=== PATIENT | female | born 1975 | race Caucasian/White ===

== ENCOUNTER 2023-12-04 12:27 | Day surgery (SDC) | payer BC, SELFPAY ==
[2023-11-30 17:25] VITALS: BMI 26.1
[2023-12-04 13:30] VITALS: BP 119/74; PULSE 65; RESP 18; TEMP 36.8; O2SAT 100
--- NOTE | 2023-12-04 13:34 | EXP.ANES.CKL ---
[facility] Disclaimer: The information contained in this section may have been updated after the patient was seen, as this information can be updated by other users. Medical History Family history of premature ventricular contractions History of hypothyroidism Surgical History History of knee surgery Family History Other No significant family history Social History (Updated 12/04/23 @ 13:39 by Carmina Mcleod RN) Smoking Status: Never smoker alcohol intake: never substance use type: denies use current occupational status: other Travel in the last 8 weeks: None caffeine: No [facility] Anesthesia Checklist Patient Identification Patient Identification: Arm Band and Verbal (Name & ) Structural Data Admitted From: Home Planned Operative Procedure/s: Colonoscopy Consent for Planned Operative Procedure(s) Verified: Yes Verified Documents: Surgical Consent and History and Physical NPO Status Verified Time NPO: 00:00 Chart Verification Results Verified: HCG Additional verifications Anesthesia Reactions: No Airway Assessment Mallampati Score:: Class I C-Spine Mobility Assessed: Yes TMJ Mobility Assessed: Yes Dentition: Good Dentition Neurological Assessment Level of Consciousness: Awake Hx Seizures: No Numbness or tingling in extremities: No Anesthesia Plan Anesthesia Risk discussed: Yes Anesthesia Plan: Verified ASA Class: II Anesthesia Type: MAC
[2023-12-04 13:39] LABS: Urine Pregnancy, HCG Qual. Negative (Negative)
[2023-12-04] MEDS: LACTATED RINGERS 1000ML 1,000 ML 25 ML IV (13:41)
--- NOTE | 2023-12-04 14:34 | P.HP_ITS ---
History of Present Illness *Admission Date: 12/04/23 *Reason for visit:: Screening *History of present illness: Mrs. Rock is a 48-year-old female who is here for screening colonoscopy. The examination is deemed medically necessary for screening. The patient has been seen, interviewed and examined prior to the procedure by both myself and the anesthesia provider. [facility] Disclaimer: The information contained in this section may have been updated after the patient was seen, as this information can be updated by other users. Medical History Family history of premature ventricular contractions History of hypothyroidism Surgical History History of knee surgery Family History Other No significant family history Social History (Updated 12/04/23 @ 13:43 by Lara Laura CRNA) Smoking Status: Never smoker alcohol intake: never substance use type: denies use current occupational status: other Travel in the last 8 weeks: None caffeine: No Review of Systems Review of Systems Review of systems (narrative): Negative *Cardiovascular Comments: Negative *Gastrointestinal Comments: Negative *Genitourinary Comments: Negative *Musculoskeletal Comments: Negative *Neurologic Comments: Negative Meds Home Medications and Allergies Home Medications ?Medication ?Instructions ?Recorded ?Confirmed ?Type levothyroxine 125 mcg tablet 125 mcg PO DAILY 11/30/23 12/04/23 History (Synthroid) metoprolol succinate 25 mg 25 mg PO DAILY 11/30/23 12/04/23 History tablet,extended release 24 hr New Prescriptions to Start Prescriptions: Allergies Allergy/AdvReac Type Severity Reaction Status Date / Time No Known Drug Allergies Allergy Other Verified 12/04/23 13:39 Exam Data for Last 24 hours Vital signs and Labs for Last 24 Hours: Temp Pulse Resp BP Pulse Ox O2 Del Method 98.2 F 65 18 119/74 100 Room Air 12/04/23 13:30 12/04/23 13:30 12/04/23 13:30 12/04/23 13:30 12/04/23 13:30 12/04/23 13:30 Laboratory Results - last 24 hr 12/04/23 13:11: Urine HCG, Qual Negative *Routine HEENT Exam Head: Present normocephalic Eye: Present EOMI and PERRL ENT: Present mucous membranes moist *Routine Neck Exam Neck: Present supple *Routine Respiratory Exam Respiratory: Present CTA bilaterally *Routine Cardiovascular Exam Cardiovascular: Present RRR *Routine Abdominal Exam Abdominal: Present soft and normoactive bowel sounds; Absent tenderness *Routine Rectal Exam Rectal:: deferred *Routine Genitalia Exam Genitalia:: deferred *Routine Extremities Exam Extremities: Absent cyanosis, clubbing or edema *Routine Skin Exam Skin: Present warm; Absent rash *Routine Neurological Exam Neurological: Present alert and oriented X3 Assessment and Plan *Assessment and plan (1) Screening for colon cancer: Status: Acute Category: Medical Code(s): Z12.11 - Encounter for screening for malignant neoplasm of colon Plan A/P: 1. Screening for colon cancer is the preprocedural diagnosis. The patient will be anesthetized/sedated using MAC sedation. The patient has been seen and examined. Cardiac and lung assessment prior to the examination is stable. Proceed with planned colonoscopy
[2023-12-04 14:40] VITALS: O2SAT 100
--- NOTE | 2023-12-04 14:43 | P.PCN_ITS ---
[facility] Procedure Note Date: 12/04/23 Time: 15:02 Procedure Note:: Colonoscopy Procedure Report: Colonoscopy with cold snare polypectomy Endoscopist: Chau Brown II, MD Referring physician: VJ Martinez Date of Procedure: December 04, 2023 Equipment: Olympus 190 variable stiffness pediatric colonoscope Sedation: MAC sedation Indication: Mrs. Rock is a 48-year-old female who is here for initial screening colonoscopy. She reports no abdominal pain, weight loss, change in her bowel habits or rectal bleeding. She reports no family history of colon cancer. Procedure: Prior to the procedure, a history and physical exam was performed, and patient's medications and allergies were reviewed. The risks, benefits and alternatives of the sedation and procedure were discussed with the patient. All questions were answered and informed consent was obtained. The patient was brought to the procedure room. Patient identification and proposed procedure were verified by the physician and the nurse. The patient was placed in a left lateral decubitus position and the scope was passed under direct vision. Throughout the procedure, the patient's blood pressure, pulse, and oxygen saturations were monitored continuously. The colonoscopy was accomplished without difficulty. The patient tolerated the procedure well. Findings: On digital rectal examination there was normal rectal tone. There were no external hemorrhoids. The colonoscope was introduced through the anal canal to the rectum and advanced to the cecum. The ileocecal valve and appendiceal orifice were identified. The scope was advanced a short distance into the ileum which appeared grossly normal. The scope was then withdrawn into the colon. There were 2 polyps (descending x 1 (3 mm) and rectum x 1 (5 mm)). Both of these were removed via cold snare polypectomy. The remaining cecum, ascending, transverse, descending, sigmoid and rectum were grossly normal. There were no mucosal abnormalities identified. Upon retroflexion within the rectum there were grade 1 internal hemorrhoids.The preparation was excellent throughout with [place] Preparation Score of 9. The cecal time was 10 minutes. Impression: 1. Diminutive colonic polyps x 2 2. Grade 1 internal hemorrhoids Plan: I will follow-up the polyp histology and recommend repeat screening/surveillance colonoscopy again in 7 to 10 years based upon the pathology.
[2023-12-04 15:03] VITALS: BP 121/67; PULSE 76; RESP 16; TEMP 36.3; O2SAT 98
[2023-12-04 15:13] VITALS: BP 122/67; PULSE 78; RESP 16; O2SAT 99
[2023-12-04 15:20] VITALS: BP 124/78; PULSE 78; RESP 16; O2SAT 99
== END 2023-12-04 15:21 | disposition home or self-care (01) ==
PROVIDERS: PCP Nurse Practitioner Family; Visit Provider Internal Medicine Gastroenterology
PROC: (CPT 45385; principal; 2023-12-04 14:00)
DX: K63.5 Polyp of colon (principal); K64.0 First degree hemorrhoids; Z12.11 Encounter for screening for malignant neoplasm of colon
CPT/HCPCS: 45385; 81025; J7120